=== PATIENT | male | born 1990 | race Caucasian/White ===

== ENCOUNTER 2016-11-16 10:25 | Emergency (ER) | payer OTHER ==
[~2016-11-16] VITALS: Ht 180.3 cm; Wt 55.0 kg
[~2016-11-16 10:25] MED LIST: METO10TA92 PO; ONDA4TAB8 PO; PANT40TA3 PO
[2016-11-16 10:31] VITALS: Ht 180.3 cm; Wt 55.0 kg
[2016-11-16] MEDS ORDERED: ONDANSETRON 4 MG INJ IV STA (11:24)
[2016-11-16] MEDS ORDERED: SOD CHLORIDE 0.9% 1,000 ML IV STA (11:24)
[2016-11-16] MEDS ORDERED: KETOROLAC 15 MG INJ IV STA (11:24)
[2016-11-16] MEDS ORDERED: DICYCLOMINE 20 MG INJ IM ONE (11:30)
[2016-11-16] MEDS ORDERED: LORAZEPAM 2 MG INJ IV ONE (11:30)
[2016-11-16 11:51] VITALS: BP 92/53; PULSE 57; TEMP 98
[2016-11-16 12:02] LABS: BASOPHILS % 0.7 % (0.0-2.0); CONDITION 1; EOSINOPHILS # 0.2 10^3/ul (0.0-0.5); EOSINOPHILS % 2.2 % (0.0-7.0); HEMATOCRIT 42.5 % (42.0-52.0); HEMOGLOBIN 14.8 g/dl (14.0-18.0); LYMPHOCYTES # 1.9 10^3/ul (0.8-2.9); LYMPHOCYTES % 27.5 % (15.0-51.0); MEAN CORPUSCULAR HEMOGLOBIN 32.4 pg (29.0-33.0); MEAN CORPUSCULAR HGB CONC 34.8 g/dl (32.0-37.0); MEAN CORPUSCULAR VOLUME 93.1 fl (82.0-101.0); MEAN PLATELET VOLUME 8.2 fl (7.4-10.4); MONOCYTE # 0.5 10^3/ul (0.3-0.9); MONOCYTES % 7.4 % (0.0-11.0); NEUTROPHIL # 4.3 10^3/ul (1.6-7.5); NEUTROPHILS % 62.2 % (39.0-77.0); PLATELET COUNT 253 10^3/UL (140-440); RED BLOOD COUNT 4.56 10^6/ul (4.70-6.10); RED CELL DISTRIBUTION WIDTH 12.8 % (11.5-14.5)
[2016-11-16 12:12] LABS: POTASSIUM 4.9 mmol/L (3.5-5.1)
[2016-11-16 12:14] LABS: CREATININE 0.92 mg/dl (0.61-1.24)
[2016-11-16 12:15] LABS: CALCIUM 9.9 mg/dl (8.4-10.2)
[2016-11-16] MEDS ORDERED: FAMO20TA18 PO (12:39)
--- NOTE | 2016-11-16 12:49 | ERD ---
ER Documentation Chief Complaint Date/Time DATE: 11/16/16 TIME: 12:46 Chief Complaint ap with vomiting x 5 weeks, here before c/o same HPI 26-year-old male history of cyclic vomiting syndrome secondary to chronic marijuana abuse who presents to the emergency room with nausea vomiting and abdominal pain. He describes 5 weeks of symptoms. He describes severe cramping abdominal pain with nausea and vomiting, loose stools. The patient has failed to follow-up with primary care physician and GI specialist. He states the symptoms are very similar to episodes in the past. He is asking for IV narcotic pain medication. ROS All systems reviewed and are negative except as per history of present illness. Medications Home Meds Active Scripts Metoclopramide* (Reglan*) 10 Mg Tablet, 10 MG PO Q6 Y for NAUSEA AND/OR VOMITING , #10 TAB Prov:DIONNE LAST MD 08/30/16 Ondansetron Hcl* (Zofran*) 4 Mg Tablet, 4 MG PO Q6H for NAUSEA AND/OR VOMITING, #15 TAB Prov:DIONNE LAST MD 08/30/16 Reported Medications Famotidine* (Famotidine*) 20 Mg Tablet, 20 MG PO BID, #60 TAB 11/16/16 Discontinued Scripts Pantoprazole* (Protonix*) 40 Mg Tablet.dr, 40 MG PO DAILY, #15 TAB Prov:DIONNE LAST MD 08/30/16 Allergies Allergies: Coded Allergies: No Known Drug Allergies (Verified Allergy, Unknown, 11/16/16) PMhx/Soc History of Surgery: Yes (Right hand fracture with metal implant, hernia repair as baby) Anesthesia Reaction: No Hx Neurological Disorder: No Hx Respiratory Disorders: No Hx Cardiac Disorders: No Hx Psychiatric Problems: No (Anxiety) Hx Miscellaneous Medical Probl: No Hx Alcohol Use: No Hx Substance Use: Yes (marijuana ) Hx Tobacco Use: Yes (1/2 pack.) Smoking Status: Current every day smoker FmHx Family History: No diabetes Physical Exam Vitals Vital Signs Date Time Temp Pulse Resp B/P Pulse Ox O2 Delivery O2 Flow Rate FiO2 11/16/16 11:51 98.0 57 92/53 100 Room Air 11/16/16 10:31 98.1 72 18 122/72 99 Physical Exam General: Disheveled, no significant distress Head: Normocephalic, atraumatic. Eyes: Pupils equally reactive, EOM intact ENT: Moist mucous membranes Neck: Supple, no lymphadenopathy Respiratory: Lungs clear bilaterally, no distress Cardiovascular: RRR, no murmurs, rubs, or gallops Abdominal: Soft, non-tender, non-distended, no peritoneal signs : Deferred MSK: No edema, no unilateral swelling, 5/5 strength Neurologic: Alert and oriented, moving all extremities, normal speech, no focal weakness, no cerebellar signs Skin: No rash Psych: Normal mood Result Diagram: 11/16/16 1145 11/16/16 1145 Results 24 hrs Laboratory Tests Test 11/16/16 11:45 Anion Gap 24 Basophils # 0.010^3/ul Basophils % 0.7% Blood Urea Nitrogen 37mg/dl Calcium Level 9.9mg/dl Carbon Dioxide Level 28mmol/L Chloride Level 97mmol/L Creatinine 0.92mg/dl Eosinophils # 0.210^3/ul Eosinophils % 2.2% Glucose Level 75mg/dl Hematocrit 42.5% Hemoglobin 14.8g/dl Lymphocytes # 1.910^3/ul Lymphocytes % 27.5% Mean Corpuscular Hemoglobin 32.4pg Mean Corpuscular Hemoglobin Concent 34.8g/dl Mean Corpuscular Volume 93.1fl Mean Platelet Volume 8.2fl Monocytes # 0.510^3/ul Monocytes % 7.4% Neutrophils # 4.310^3/ul Neutrophils % 62.2% Nucleated Red Blood Cells # 0.010^3/ul Nucleated Red Blood Cells % 0.0/100WBC Platelet Count 26191^3/UL Potassium Level 4.9mmol/L Red Blood Count 4.5610^6/ul Red Cell Distribution Width 12.8% Sodium Level 144mmol/L White Blood Count 7.010^3/ul Current Medications Medications (Trade) Dose Ordered Sig/Yue Route PRN Reason Start Time Stop Time Status Last Admin Dose Admin Sodium Chloride (NS) 1,000 ml @ 1,000 mls/hr Q1H STAT IV 11/16/16 11:24 11/16/16 12:23 DC 11/16/16 11:51 Ondansetron HCl (Zofran Inj) 4 mg ONCE STAT IV 11/16/16 11:24 11/16/16 11:26 DC 11/16/16 11:51 Ketorolac Tromethamine (Toradol) 15 mg ONCE STAT IV 11/16/16 11:24 11/16/16 11:26 DC 11/16/16 11:51 Lorazepam (Ativan) 1 mg ONCE ONCE IV 11/16/16 11:30 11/16/16 11:31 DC 11/16/16 11:51 Dicyclomine HCl (Bentyl) 10 mg ONCE ONCE IM 11/16/16 11:30 11/16/16 11:31 DC Procedures/MDM LAB INTERPRETATION: No leukocytosis, no significant dehydration MEDICAL DECISION MAKING: A combination of electronic medical record review, [facility] database review and patient behavior in the emergency room are concerning for drug-seeking and/or narcotic dependence behavior. In my opinion further use of IV or IM narcotics in this patient is not warranted unless clinical scenario changes. In addition , we should use caution prescribing chronic narcotic and/or benzodiazepine medications from the emergency room. A single provider should be dispensing this type of medication. The patient was informed. I personally saw the patient several days ago at [facility]. In fact the patient was at [facility] earlier today, the provider there states that he walked out when he was told that he would not receive narcotic medications. I believe his presentation today is very consistent with cyclic vomiting syndrome. I offered laboratory testing, nonnarcotic pain medication and IV fluids. The patient refused the Bentyl. I do not believe the patient has an acute intra-abdominal process, his presentation is very similar to presentations in the past. ER COURSE: The patient has greater than 7 visits to emergency department since the middle of October for similar symptoms. He had negative CT imaging earlier this month. The patient now wishes to leave AGAINST MEDICAL ADVICE because he is not receiving narcotic pain medication. We discussed the risk benefits and alternatives. A document was signed and the patient will leave AGAINST MEDICAL ADVICE. The patient has had a repeat recommendations that he needs to follow-up with a GI specialist, pain specialist management and these referrals have been provided to him in the past. He has exhibited behavior of poor follow-up, malingering, drug-seeking behavior and super utilization of the emergency department. I kept the patient and/or family informed of laboratory and diagnostic imaging results throughout the emergency room course. DISPOSITION PLAN: Patient left AMA Departure Diagnosis: Primary Impression: Abdominal pain Abdominal location: generalized Qualified Code: R10.84 - Generalized abdominal pain Additional Impressions: Cyclic vomiting syndrome Vomiting Intractability: unspecified Nausea presence: unspecified Qualified Code: G43.A0 - Cyclic vomiting syndrome, intractability of vomiting not specified, presence of nausea not specified Drug-seeking behavior Condition: JITENDRA Adames MD Nov 16, 2016 12:49
== END 2016-11-16 12:56 | disposition left against medical advice (07) ==
LOC: E/R 10:25
DX: R10.84 Generalized abdominal pain (principal); G43.A0 Cyclical vomiting, in migraine, not intractable; F17.210 Nicotine dependence, cigarettes, uncomplicated; Z72.89 Other problems related to lifestyle
CPT/HCPCS: 36415; 80048; 85025; 96374; 96375; J0500; J1885; J2060; J2405; J7030; Z7502

== ENCOUNTER 2017-10-04 20:22 | Emergency (ER) | END 2017-10-05 00:31 | disposition left against medical advice (07) ==

== ENCOUNTER 2018-07-10 11:52 | Emergency (ER) | END 2018-07-10 12:10 | disposition home or self-care (01) ==

== ENCOUNTER 2018-11-26 17:30 | Inpatient (IN) | payer OTHER ==
[~2018-11-26] VITALS: Ht 182.9 cm; Wt 51.0 kg
[~2018-11-26 17:30] MED LIST changes: +FAMO20TA18 PO; -PANT40TA3 PO
[2018-11-26 17:52] VITALS: PULSE 79
[2018-11-26 17:55] VITALS: BP 111/68; PULSE 73
[2018-11-26 17:58] VITALS: Ht 182.9 cm; Wt 51.0 kg
[2018-11-26] MEDS ORDERED: NACL 0.9% 3 ML SYG IV SCH (18:30)
[2018-11-26] MEDS ORDERED: ZOLPIDEM 5 MG TAB PO PRN (18:30)
[2018-11-26] MEDS ORDERED: ACETAMINOPHEN 325 MG TAB PO PRN (18:30)
[2018-11-26] MEDS: morphine 2 MG INJ IV PRN ×2 (18:50→23:21)
--- NOTE | 2018-11-26 19:05 | HP ---
Date/Time of Note Date/Time of Note DATE: 11/26/18 TIME: 19:02 Assessment/Plan VTE Prophylaxis SCD applied (from Ns): Yes Pharmacological prophylaxis: NA/contraindicated Pharm contraindication: low risk/ambulating Assessment/Plan Hospital Course 1. 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 Hypokalemia secondary to above Replete 3. Bipolar disorder with anxiety Continue home Klonopin Prophylaxis: SCDs HPI/ROS Admit Date/Time Admit Date/Time Nov 26, 2018 at 17:30 Hx of Present Illness Patient is a 28-year-old male with a history of intractable nausea and vomiting, bipolar disorder, anxiety. Patient presented to an outside hospital with persistent and intractable nausea and vomiting, patient was found to be hypokalemic and was transferred to [facility] due to capitation. P juvencio continues to report mild nausea but has no other acute complaints this time. ROS Constitutional: no complaints, improved Eyes: no complaints ENT: no complaints Respiratory: no complaints Cardiovascular: no complaints Gastrointestinal: nausea, vomiting Genitourinary: no complaints Musculoskeletal: no complaints Skin: no complaints Neurologic: no complaints Endocrine: no complaints Lymphatic: no complaints Psychological: no complaints, nl mood/affect Immunologic: no complaints PMH/Family/Social Past Medical History Bipolar disorder, anxiety, intractable nausea and vomitting Medications Current Medications IV Flush (NS 3 ml) 3 ml PER PROTOCOL IV ; Start 11/26/18 at 18:30 Ondansetron HCl (Zofran Inj) 4 mg Q6H PRN IV NAUSEA/VOMITING; Start 11/26/18 at 18:30 Acetaminophen (Tylenol Tab) 650 mg Q6H PRN PO .PAIN 1-3 OR TEMP; Start 11/26/18 at 18:30 Acetaminophen/ Hydrocodone Bitart ([place] (5/325)) 1 tab Q6H PRN PO .MOD PAIN 4- 6; Start 11/26/18 at 18:30 Morphine Sulfate (morphine) 2 mg Q4H PRN IV .SEVERE PAIN 7-10 Last administered on 11/26/18at 18:50; Admin Dose 2 MG; Start 11/26/18 at 18:30 Zolpidem Tartrate (Ambien) 5 mg QHS PRN PO .INSOMNIA; Start 11/26/18 at 18:30 Potassium Chloride 40 meq/ Sodium Chloride 1,000 ml @ 100 mls/hr Q10H IV ; S tart 11/26/18 at 18:30 Influenza Virus Vaccine Quadrival (Fluzone) 0.5 ml ONCE ONCE IM* ; Start 11/27/18 at 09:00; Stop 11/27/18 at 09:01 Coded Allergies: No Known Drug Allergies (Verified Allergy, Unknown, 11/16/16) Past Surgical History Past Surgical Hx: no surgical history Family History Significant Family History: no pertinent family hx Social History Alcohol Use: rarely Smoking Status: Current every day smoker Drug Use: none Exam/Review of Systems Vital Signs Vitals Vital Signs Date Temp Pulse Resp B/P (MAP) Pulse Ox O2 O2 Flow FiO2 Time Delivery Rate 11/26/18 99.3 73 111/68 97 Room Air 17:55 (82) Exam Constitutional: alert, oriented Respiratory: clear to auscultation Cardiovascular: regular rate and rhythm Gastrointestinal: soft; No distended Musculoskeletal: nl extremities to inspection GABRIELLE ROMO Nov 26, 2018 19:05
[2018-11-26 20:00] VITALS: PULSE 74
[2018-11-26 20:13] VITALS: BP 120/82; PULSE 77; RESP 20
[2018-11-26] MEDS: POTASSIUM CHLORIDE 40 MEQ in SOD CHLORIDE 0.9% 1,000 ML IV SCH (20:17)
[2018-11-26] MEDS: clonAZEPAM 0.5 MG TAB PO SCH (20:18)
[2018-11-26] MEDS: NICOTINE (21 MG/24 HR) PATCH TRANSDERM SCH (23:16)
[2018-11-27] VITALS (13 sets, daily range): BP systolic 108–128; BP diastolic 66–85; PULSE 52–78; RESP 18–20
[2018-11-27] MEDS: ONDANSETRON 4 MG INJ IV PRN ×2 (02:08→08:12)
[2018-11-27] MEDS: morphine 2 MG INJ IV PRN ×6 (03:10→23:40)
[2018-11-27] MEDS: POTASSIUM CHLORIDE 40 MEQ in SOD CHLORIDE 0.9% 1,000 ML IV SCH ×2 (06:13→14:30)
[2018-11-27] MEDS: clonAZEPAM 0.5 MG TAB PO SCH ×2 (08:12→21:19)
[2018-11-27] MEDS: NICOTINE (21 MG/24 HR) PATCH TRANSDERM SCH (08:13)
[2018-11-27] MEDS: POTASSIUM CHLORIDE 100 ML IVPB SCH ×3 (08:23→15:03)
[2018-11-27] MEDS ORDERED: INFLUENZA VIRUS VACCINE 0.5 ML (DISPENSING) IM* ONE (09:00)
[2018-11-27] MEDS ORDERED: NICOTINE (21 MG/24 HR) PATCH TRANSDERM SCH (09:00)
[2018-11-27] MEDS: HYDROCODONE/APAP (5/325) TAB PO PRN ×3 (09:52→23:04)
--- NOTE | 2018-11-27 15:59 | PN ---
Date/Time of Note Date/Time of Note DATE: 11/27/18 TIME: 15:55 Assessment/Plan VTE Prophylaxis Risk score (from Ns)>0 risk: 1 SCD applied (from Ns): Yes Pharmacological prophylaxis: NA/contraindicated Pharm contraindication: low risk/ambulating Lines/Catheters IV [facility]from [facility] Peripheral IV Assessment/Plan Hospital Course 1. 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 Hypokalemia secondary to above Replete 3. Bipolar disorder with anxiety Continue home [facility] Inpatient psychiatric consultation obtained Prophylaxis: SCDs Result Diagram: 11/27/18 0512 11/27/18 0512 Results 24hrs Laboratory Tests Test 11/27/18 05:12 White Blood Count 10.2 # Red Blood Count 4.74 Hemoglobin 14.8 Hematocrit 41.4 L Mean Corpuscular Volume 87.3 Mean Corpuscular Hemoglobin 31.2 Mean Corpuscular Hemoglobin Concent 35.7 Red Cell Distribution Width 11.8 Platelet Count 411 Mean Platelet Volume 9.8 Immature Granulocytes % 0.200 Neutrophils % 65.8 Lymphocytes % 20.7 Monocytes % 12.3 H Eosinophils % 0.4 Basophils % 0.6 Nucleated Red Blood Cells % 0.0 Immature Granulocytes # 0.020 Neutrophils # 6.7 Lymphocytes # 2.1 Monocytes # 1.3 H Eosinophils # 0.0 Basophils # 0.1 Nucleated Red Blood Cells # 0.0 Sodium Level 134 L Potassium Level 2.5 *L Chloride Level 76 L Carbon Dioxide Level 43 *H Anion Gap 15 H Blood Urea Nitrogen 44 H Creatinine 1.34 H Est Glomerular Filtrat Rate mL/min > 60 Glucose Level 114 Hemoglobin A1c 5.1 Calcium Level 9.5 Phosphorus Level 2.7 Magnesium Level 2.1 Total Bilirubin 0.9 Direct Bilirubin 0.00 Indirect Bilirubin 0.9 Aspartate Amino Transf (AST/SGOT) 31 Alanine Aminotransferase (ALT/SGPT) 26 Alkaline Phosphatase 69 Total Protein 8.3 H Albumin 4.4 Globulin 3.90 H Albumin/Globulin Ratio 1.12 Subjective 24 Hr Interval Summary Gastrointestinal: pain, nausea Exam/Review of Systems Exam Vitals Vital Signs Date Temp Pulse Resp B/P (MAP) Pulse Ox O2 O2 Flow FiO2 Time Delivery Rate 11/27/18 59 12:44 11/27/18 97.6 18 120/84 100 11:56 (96) 11/26/18 Room Air 17:55 Intake and Output 11/26/18 11/26/18 11/27/18 1515:00 23:00 07:00 IntakeIntake Total 1350 ml OutputOutput Total 600 ml BalanceBalance 750 ml Constitutional: alert, oriented Respiratory: clear to auscultation Cardiovascular: regular rate and rhythm Gastrointestinal: soft; No distended Musculoskeletal: nl extremities to inspection Results Results 24hrs Laboratory Tests Test 11/27/18 05:12 White Blood Count 10.2 # Red Blood Count 4.74 Hemoglobin 14.8 Hematocrit 41.4 L Mean Corpuscular Volume 87.3 Mean Corpuscular Hemoglobin 31.2 Mean Corpuscular Hemoglobin Concent 35.7 Red Cell Distribution Width 11.8 Platelet Count 411 Mean Platelet Volume 9.8 Immature Granulocytes % 0.200 Neutrophils % 65.8 Lymphocytes % 20.7 Monocytes % 12.3 H Eosinophils % 0.4 Basophils % 0.6 Nucleated Red Blood Cells % 0.0 Immature Granulocytes # 0.020 Neutrophils # 6.7 Lymphocytes # 2.1 Monocytes # 1.3 H Eosinophils # 0.0 Basophils # 0.1 Nucleated Red Blood Cells # 0.0 Sodium Level 134 L Potassium Level 2.5 *L Chloride Level 76 L Carbon Dioxide Level 43 *H Anion Gap 15 H Blood Urea Nitrogen 44 H Creatinine 1.34 H Est Glomerular Filtrat Rate mL/min > 60 Glucose Level 114 Hemoglobin A1c 5.1 Calcium Level 9.5 Phosphorus Level 2.7 Magnesium Level 2.1 Total Bilirubin 0.9 Direct Bilirubin 0.00 Indirect Bilirubin 0.9 Aspartate Amino Transf (AST/SGOT) 31 Alanine Aminotransferase (ALT/SGPT) 26 Alkaline Phosphatase 69 Total Protein 8.3 H Albumin 4.4 Globulin 3.90 H Albumin/Globulin Ratio 1.12 Medications Medication Current Medications IV Flush (NS 3 ml) 3 ml PER PROTOCOL IV ; Start 11/26/18 at 18:30 Ondansetron HCl (Zofran Inj) 4 mg Q6H PRN IV NAUSEA/VOMITING Last administered on 11/27/18 08:12; Admin Dose 4 MG; Start 11/26/18 at 18:30 Acetaminophen (Tylenol Tab) 650 mg Q6H PRN PO .PAIN 1-3 OR TEMP; Start 11/26/18 at 18:30 Acetaminophen/ Hydrocodone Bitart ([place] (5/325)) 1 tab Q6H PRN PO .MOD PAIN 4- 6 Last administered on 11/27/18 09:52; Admin Dose 1 TAB; Start 11/26/18 at 18:30 Morphine Sulfate (morphine) 2 mg Q4H PRN IV .SEVERE PAIN 7-10 Last administered on 11/27/18 15:23; Admin Dose 2 MG; Start 11/26/18 at 18:30 Zolpidem Tartrate (Ambien) 5 mg QHS PRN PO .INSOMNIA; Start 11/26/18 at 18:30 Potassium Chloride 40 meq/ Sodium Chloride 1,000 ml @ 100 mls/hr Q10H IV Last administered on 11/27/18 06:13; Admin Dose 100 MLS/HR; Start 11/26/18 at 18:30 Clonazepam (Klonopin) 1 mg BID PO Last administered on 11/27/18 08:12; Admin Dose 1 MG; Start 11/26/18 at 21:00 Nicotine (Nicoderm 21 Mg/ 24hr) 1 patch DAILY TRANSDERM Last administered on 11/27/18 08:13; Admin Dose 1 PATCH; Start 11/26/18 at 23:00 GABRIELLE ROMO Nov 27, 2018 15:59
[2018-11-28] VITALS (10 sets, daily range): BP systolic 100–115; BP diastolic 65–75; PULSE 56–91; RESP 18–20
[2018-11-28] MEDS: POTASSIUM CHLORIDE 40 MEQ in SOD CHLORIDE 0.9% 1,000 ML IV SCH ×5 (00:29→22:51)
[2018-11-28] MEDS: morphine 2 MG INJ IV PRN ×5 (03:42→20:32)
[2018-11-28] MEDS: ONDANSETRON 4 MG INJ IV PRN (04:26)
[2018-11-28] MEDS: HYDROCODONE/APAP (5/325) TAB PO PRN ×3 (05:15→22:51)
[2018-11-28] MEDS: NICOTINE (21 MG/24 HR) PATCH TRANSDERM SCH (07:49)
[2018-11-28] MEDS: clonAZEPAM 0.5 MG TAB PO SCH ×2 (07:49→20:32)
[2018-11-28] MEDS: LORAZEPAM 1 MG TAB PO PRN ×2 (10:02→18:20)
[2018-11-28] MEDS ORDERED: clonAZEPAM 0.5 MG TAB PO ONE (13:00)
--- NOTE | 2018-11-28 14:40 | PN ---
Date/Time of Note Date/Time of Note DATE: 11/28/18 TIME: 14:38 Assessment/Plan VTE Prophylaxis Risk score (from Nsg)>0 risk: 0 SCD applied (from Ns): Yes Pharmacological prophylaxis: NA/contraindicated Pharm contraindication: low risk/ambulating Lines/Catheters IV Catheter Type (from Nrsg): Peripheral IV Assessment/Plan Hospital Course 1. Intractable nausea and vomiting likely secondary to underlying psychiatric condition Patient was recently diagnosed with bipolar disorder and anxiety and has been started on medications by his psychiatrist Patient has had multiple endoscopies as well as food journal with no clear objective etiology for his symptoms Patient does have a history of marijuana use but uses only minimally at this time Zofran IV Continue psychiatric medications-Klonopin Patient will need to continue follow-up with his psychiatrist and manager line as an outpatient upon DC 2. Hypokalemia secondary to above Replete 3. Bipolar disorder with anxiety Continue home Klonopin and have added Ativan due to severe anxiety Inpatient psychiatric consultation obtained Prophylaxis: SCDs Result Diagram: 11/27/1851111/28/1812 Results 24hrs Laboratory Tests Test 11/28/18 05:12 Sodium Level 136 Potassium Level 3.3 L Chloride Level 91 #L Carbon Dioxide Level 39 H Anion Gap 6 # Blood Urea Nitrogen 28 #H Creatinine 1.04 Est Glomerular Filtrat Rate mL/min > 60 Glucose Level 94 Calcium Level 9.2 Subjective 24 Hr Interval Summary Gastrointestinal: nausea Psychological: anxiety Exam/Review of Systems Exam Vitals Vital Signs Date Temp Pulse Resp B/P (MAP) Pulse Ox O2 O2 Flow FiO2 Time Delivery Rate 11/28/18 76 12:20 11/28/18 97.8 20 104/68 100 Room Air 07:35 (80) Intake and Output 11/27/18 11/27/18 11/28/18 1515:00 23:00 07:00 IntakeIntake Total 720 ml 1800 ml OutputOutput Total 1050 ml BalanceBalance 720 ml 750 ml Constitutional: alert Respiratory: clear to auscultation Cardiovascular: regular rate and rhythm Gastrointestinal: soft; No distended Musculoskeletal: nl extremities to inspection Results Results 24hrs Laboratory Tests Test 11/28/18 05:12 Sodium Level 136 Potassium Level 3.3 L Chloride Level 91 #L Carbon Dioxide Level 39 H Anion Gap 6 # Blood Urea Nitrogen 28 #H Creatinine 1.04 Est Glomerular Filtrat Rate mL/min > 60 Glucose Level 94 Calcium Level 9.2 Medications Medication Current Medications IV Flush (NS 3 ml) 3 ml PER PROTOCOL IV ; Start 11/26/18 at 18:30 Ondansetron HCl (Zofran Inj) 4 mg Q6H PRN IV NAUSEA/VOMITING Last administered on 11/28/18 04:26; Admin Dose 4 MG; Start 11/26/18 at 18:30 Acetaminophen (Tylenol Tab) 650 mg Q6H PRN PO .PAIN 1-3 OR TEMP; Start 11/26/18 at 18:30 Acetaminophen/ Hydrocodone Bitart ([place] (5/325)) 1 tab Q6H PRN PO .MOD PAIN 4- 6 Last administered on 11/28/18 13:38; Admin Dose 1 TAB; Start 11/26/18 at 18:30 Morphine Sulfate (morphine) 2 mg Q4H PRN IV .SEVERE PAIN 7-10 Last administered on 11/28/18 11:55; Admin Dose 2 MG; Start 11/26/18 at 18:30 Zolpidem Tartrate (Ambien) 5 mg QHS PRN PO .INSOMNIA; Start 11/26/18 at 18:30 Potassium Chloride 40 meq/ Sodium Chloride 1,000 ml @ 100 mls/hr Q10H IV Last administered on 11/28/18 12:58; Admin Dose 100 MLS/HR; Start 11/26/18 at 18:30 Clonazepam (Klonopin) 1 mg BID PO Last administered on 11/28/18 07:49; Admin Dose 1 MG; Start 11/26/18 at 21:00 Nicotine (Nicoderm 21 Mg/ 24hr) 1 patch DAILY TRANSDERM Last administered on 11/28/18 07:49; Admin Dose 1 PATCH; Start 11/26/18 at 23:00 Lorazepam (Ativan) 1 mg Q8H PRN PO ANXIETY Last administered on 11/28/18 10:02; Admin Dose 1 MG; Start 11/28/18 at 10:00 GABRIELLE ROMO Nov 28, 2018 14:39
--- NOTE | 2018-11-28 16:14 | PSY ---
Date/Time of Note Date/Time of Note DATE: 11/28/18 TIME: 16:12 Psychiatric Subjective Eval Consent Pt consented to telemedicine: No Subjective Evaluation Patient location: inpatient History of present illness Patient is a 28-year-old male with a history of intractable nausea and vomiting. On a [id number] evaluation, patient is increasingly anxious, reports feeling depressed and hopeless patient however denies suicidal ideation and contracted for safety. Explained risk and benefits of antidepressant and antianxiety and he verbalized understanding Hospitalization: other Medical history Problems Medical Problems: (1) Abdominal pain Status: Acute (2) Abdominal pain Status: Acute (3) Abdominal pain Status: Acute (4) Abdominal pain of unknown etiology Status: Acute (5) Acute hypokalemia Status: Acute (6) Acute kidney injury Status: Acute (7) ARF (acute renal failure) Status: Acute (8) Chronic renal disease Status: Acute (9) Cyclic vomiting syndrome Status: Acute (10) Cyclical vomiting syndrome Status: Acute (11) Cyclical vomiting syndrome Status: Acute (12) Drug-seeking behavior Status: Acute (13) Gastritis Status: Acute (14) Hyperemesis Status: Acute (15) Intractable vomiting with nausea Status: Acute (16) Leukocytosis Status: Acute (17) Marijuana abuse Status: Acute (18) Nausea and vomiting Status: Acute (19) Patient left after triage Status: Acute (20) Patient left before evaluation by physician Status: Acute (21) Patient left before triage assessment Status: Acute (22) Polysubstance abuse Status: Acute (23) Symptoms of dehydration Status: Acute (24) Upper gastrointestinal bleed Status: Acute (25) Vomiting Status: Acute Allergies: Coded Allergies: No Known Drug Allergies (Verified Allergy, Unknown, 11/16/16) Substance Abuse Substance abuse history: No Prior substance abuse treatmen: No Social History Marital status: DPA/Conservatorship: No Psychiatric Objective Eval Review of Systems: Review of Systems: Not Applicable Physical Examination: Physical Examination: Not Applicable Mental Status Examination: Appearance: Disheveled Psychomotor Activity: Slow Behavior: Cooperative Speech: Clear AFFECT: Anxious Mood: Irritable Orientation: x4 Judgement: Moderate Attention Span: Distractible Laboratory Results Laboratory Tests Test 11/27/18 05:12 11/28/18 05:12 White Blood Count 10.2 10^3/ul Red Blood Count 4.74 10^6/ul Hemoglobin 14.8 g/dl Hematocrit 41.4 % Mean Corpuscular Volume 87.3 fl Mean Corpuscular Hemoglobin 31.2 pg Mean Corpuscular Hemoglobin Concent 35.7 g/dl Red Cell Distribution Width 11.8 % Platelet Count 411 10^3/UL Mean Platelet Volume 9.8 fl Immature Granulocytes % 0.200 % Neutrophils % 65.8 % Lymphocytes % 20.7 % Monocytes % 12.3 % Eosinophils % 0.4 % Basophils % 0.6 % Nucleated Red Blood Cells % 0.0 /100WBC Immature Granulocytes # 0.020 10^3/ul Neutrophils # 6.7 10^3/ul Lymphocytes # 2.1 10^3/ul Monocytes # 1.3 10^3/ul Eosinophils # 0.0 10^3/ul Basophils # 0.1 10^3/ul Nucleated Red Blood Cells # 0.0 10^3/ul Sodium Level 134 mmol/L 136 mmol/L Potassium Level 2.5 mmol/L 3.3 mmol/L Chloride Level 76 mmol/L 91 mmol/L Carbon Dioxide Level 43 mmol/L 39 mmol/L Anion Gap 15 6 Blood Urea Nitrogen 44 mg/dl 28 mg/dl Creatinine 1.34 mg/dl 1.04 mg/dl Est Glomerular Filtrat Rate mL/min > 60 mL/min > 60 mL/min Glucose Level 114 mg/dl 94 mg/dl Hemoglobin A1c 5.1 % Calcium Level 9.5 mg/dl 9.2 mg/dl Phosphorus Level 2.7 mg/dl Magnesium Level 2.1 mg/dl Total Bilirubin 0.9 mg/dl Direct Bilirubin 0.00 mg/dl Indirect Bilirubin 0.9 mg/dl Aspartate Amino Transf (AST/SGOT) 31 IU/L Alanine Aminotransferase (ALT/SGPT) 26 IU/L Alkaline Phosphatase 69 IU/L Total Protein 8.3 g/dl Albumin 4.4 g/dl Globulin 3.90 g/dl Albumin/Globulin Ratio 1.12 Assessment and Plan Assessment/Diagnosis Diagnosis Major depressive disorder severe recurrent without psychosis Recommendation/Plan Medication Management Lexapro 5 mg daily, continue with Klonopin 1 mg 3 times daily, BuSpar 5 mg 3 times daily, Ambien 5 mg at bedtime as needed for sleep Multiple antipsychotics: No Psychotherapy Provide supportive therapy Discharge Disposition: Other Legal Status: Voluntary TRACY CONRAD NP Nov 28, 2018 16:14
[2018-11-28] MEDS: ESCITALOPRAM 10 MG TAB PO SCH (17:06)
[2018-11-28] MEDS: BUSPIRONE 5 MG TAB PO SCH (20:31)
[2018-11-28] MEDS ORDERED: LORAZEPAM 2 MG INJ IV ONE (22:00)
[2018-11-29] MEDS: morphine 2 MG INJ IV PRN ×3 (00:04→08:15)
[2018-11-29 00:09] VITALS: BP 121/67; PULSE 77; RESP 18
[2018-11-29 00:17] VITALS: PULSE 73
[2018-11-29] MEDS: LORAZEPAM 1 MG TAB PO PRN ×2 (02:35→09:25)
[2018-11-29] MEDS ORDERED: HYDROCODONE/APAP (5/325) TAB PO PRN (02:40)
[2018-11-29 04:17] VITALS: BP 103/70; PULSE 70; RESP 18
[2018-11-29 04:27] VITALS: PULSE 77
[2018-11-29 07:32] VITALS: BP 98/57; PULSE 76; RESP 20
[2018-11-29] MEDS: clonAZEPAM 0.5 MG TAB PO SCH (08:12)
[2018-11-29] MEDS: ESCITALOPRAM 10 MG TAB PO SCH (08:12)
[2018-11-29] MEDS: BUSPIRONE 5 MG TAB PO SCH (08:12)
[2018-11-29] MEDS: NICOTINE (21 MG/24 HR) PATCH TRANSDERM SCH (08:13)
[2018-11-29 08:20] VITALS: PULSE 90
[2018-11-29] MEDS ORDERED: ESCI10TA48 PO (10:11)
[2018-11-29] MEDS ORDERED: BUSP5TAB2 PO (10:11)
[2018-11-29] MEDS ORDERED: ONDA4TAB8 PO (10:11)
[2018-11-29] MEDS ORDERED: METO10TA92 PO (10:11)
[2018-11-29] MEDS ORDERED: CLON0.5T14 PO (10:11)
--- NOTE | 2018-11-29 10:12 | PDOCDIS ---
Discharge Instructions CONDITION [id number] Patient Condition: [id number] Good HOME CARE INSTRUCTIONS: [id number] Diet Instructions: [id number] Regular ACTIVITY: [id number] Activity Restrictions: [id number] No Restrictions FOLLOW UP/APPOINTMENTS Follow-up Plan FOLLOW UP WITH YOUR PCP IN 1-2 WEEKS GABRIELLE ROMO Nov 29, 2018 10:12
--- NOTE | 2018-11-29 13:43 | DS ---
Date/Time of Note Date/Time of Note DATE: 11/29/18 TIME: 13:38 Discharge Summary Admission/Discharge Info Admit Date/Time Nov 26, 2018 at 17:30 Discharge Date/Time Nov 29, 2018 at 11:00 Discharge Diagnosis 1. 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 Hypokalemia secondary to above-resolved 3. Bipolar disorder with anxiety Inpatient psychiatric consultation appreciated DC with Lexapro, Klonopin and BuSpar Follow-up with outpatient psychiatrist Patient Condition: Good Hospital Course Patient is a 28-year-old male with a history of intractable nausea and vomiting, bipolar disorder, anxiety. Patient presented to an outside hospital with persistent and intractable nausea and vomiting, patient was found to be hypokalemic and was transferred to [facility] due to capitation. Patient continues to report mild nausea but has no other acute complaints this time. Patient has been dealing with these episodes of nausea vomiting for many years now and is likely psychosomatic. Patient has had endoscopies with no clear etiology and has kept a food journal with no obvious food allergies. Patient does have severe anxiety and was recently bipolar disorder by an outpatient psychiatrist. Patient did have significant anxiety during his hospitalization and was seen by psychiatry and was started on BuSpar, Lexapro and Klonopin frequency was increased. Patient did ultimately tolerate a p.o. diet and was stable for DC, potassium was repleted. On the day of discharge patient's vitals, labs and physical exam are stable. Home Meds Active Scripts Escitalopram Oxalate* (Escitalopram Oxalate*) 10 Mg Tablet, 5 MG PO DAILY, #60 TAB Prov:GABRIELLE ROMO 11/29/18 Clonazepam* (Clonazepam*) 0.5 Mg Tablet, 1 MG PO TID, #90 TAB 1 Refill Prov:GABRIELLE ROMO 11/29/18 Buspirone Hcl* (Buspirone Hcl*) 5 Mg Tab, 5 MG PO TID, #60 TAB 2 Refills Prov:GABRIELLE ROMO 11/29/18 Metoclopramide* (Reglan*) 10 Mg Tablet, 10 MG PO Q6 PRN for NAUSEA AND/OR VOMITING, #30 TAB Prov:GABRIELLE ROMO 11/29/18 Ondansetron Hcl* (Zofran*) 4 Mg Tablet, 4 MG PO Q6H PRN for NAUSEA AND/OR VOMITING, #40 TAB Prov:GABRIELLE ROMO 11/29/18 Reported Medications Famotidine* (Famotidine*) 20 Mg Tablet, 20 MG PO BID, #60 TAB 11/16/16 Follow-up Plan FOLLOW UP WITH YOUR PCP IN 1-2 WEEKS Primary Care Provider Care Physician No Primary Time spent on discharge: > 30 minutes GABRIELLE ROMO Nov 29, 2018 13:43
== END 2018-11-29 11:00 | disposition home or self-care (01) | DRG 392 ==
LOC: 6WM 17:30
PROVIDERS: ADMIT Internal Medicine; ATTEND Internal Medicine
DX: R11.2 Nausea with vomiting, unspecified (principal); Z68.1 Body mass index [BMI] 19.9 or less, adult; E44.0 Moderate protein-calorie malnutrition; E87.6 Hypokalemia; F31.9 Bipolar disorder, unspecified; F41.9 Anxiety disorder, unspecified; F17.210 Nicotine dependence, cigarettes, uncomplicated
CPT/HCPCS: 80048; 80053; 83036; 83735; 84100; 85025; 90686; J2060; J2270; J2405; J3480; J7030

== ENCOUNTER 2018-12-01 18:24 | Emergency (ER) | payer SELFPAY ==
[~2018-12-01] VITALS: Ht 182.9 cm; Wt 55.0 kg
[~2018-12-01 18:24] MED LIST changes: +BUSP5TAB2 PO; +CLON0.5T14 PO; +ESCI10TA48 PO
[2018-12-01 18:40] VITALS: Ht 182.9 cm; Wt 55.0 kg
== END 2018-12-01 21:08 | disposition left against medical advice (07) ==
LOC: E/R 18:24
DX: Z53.21 Procedure and treatment not carried out due to patient leaving prior to being seen by health care provider (principal)

== ENCOUNTER 2018-12-02 10:55 | Emergency (ER) | payer OTHER ==
[~2018-12-02] VITALS: Ht 182.9 cm; Wt 54.5 kg
[2018-12-02 11:03] VITALS: Ht 182.9 cm; Wt 54.5 kg
[2018-12-02] MEDS ORDERED: KETOROLAC 30 MG INJ IV STA (11:44)
[2018-12-02] MEDS ORDERED: SOD CHLORIDE 0.9% 1,000 ML IV STA (11:44)
[2018-12-02 11:53] VITALS: BP 129/88; PULSE 65; RESP 20
[2018-12-02] MEDS ORDERED: LORAZEPAM 2 MG INJ IV ONE ×2 (12:00→13:30)
[2018-12-02] MEDS ORDERED: KETAMINE (50 MG/ML) 10 ML VIAL IV ONE (13:00)
[2018-12-02] MEDS ORDERED: HYDROCODONE/APAP (10/325) TAB PO ONE (13:30)
--- NOTE | 2018-12-02 13:50 | ERD ---
ER Documentation Chief Complaint Chief Complaint black out this am in bathroom, just d/c 3 days ago, body pain, ap HPI This is a 28-year-old gentleman with a history of cyclic vomiting syndrome, chronic pain who presents to the emergency room stating that he had an episode of syncope versus near syncope. He states that he was just discharged from the hospital approximately 3 days ago. The patient describes persistent nonbloody nonbilious emesis. He states that he feels dehydrated and he may have fell to the ground and hit his head. He denies or is unsure of loss of consciousness. He is describing right-sided headache and right-sided shoulder pain. The patient is asking for narcotic medications by name. He reports his pain to be 10 out of 10. ROS All systems reviewed and are negative except as per history of present illness. Medications Home Meds Active Scripts Escitalopram Oxalate* (Escitalopram Oxalate*) 10 Mg Tablet, 5 MG PO DAILY, #60 TAB Prov:GABRIELLE CEBALLOS 11/29/18 Clonazepam* (Clonazepam*) 0.5 Mg Tablet, 1 MG PO TID, #90 TAB 1 Refill Prov:GABRIELLE CEBALLOS 11/29/18 Buspirone Hcl* (Buspirone Hcl*) 5 Mg Tab, 5 MG PO TID, #60 TAB 2 Refills Prov:GABRIELLE CEBALLOS 11/29/18 Metoclopramide* (Reglan*) 10 Mg Tablet, 10 MG PO Q6 PRN for NAUSEA AND/OR VOMITING, #30 TAB Prov:GABRIELLE CEBALLOS 11/29/18 Ondansetron Hcl* (Zofran*) 4 Mg Tablet, 4 MG PO Q6H PRN for NAUSEA AND/OR V OMITING, #40 TAB Prov:GABRIELLE CEBALLOS 11/29/18 Reported Medications Famotidine* (Famotidine*) 20 Mg Tablet, 20 MG PO BID, #60 TAB 11/16/16 Allergies Allergies: Coded Allergies: No Known Drug Allergies (Verified Allergy, Unknown, 11/16/16) PMhx/Soc History of Surgery: Yes (METAL PLATE ON RIGHT HAND) Anesthesia Reaction: No Hx Neurological Disorder: No Hx Respiratory Disorders: No Hx Cardiac Disorders: No Hx Psychiatric Problems: Yes (ANXIETY, BIPOLAR DISORDER) Hx Miscellaneous Medical Probl: Yes (cyclic vomiting) Hx Alcohol Use: No Hx Substance Use: No Hx Tobacco Use: Yes (1/2 pck daily) Smoking Status: Current every day smoker FmHx Family History: No diabetes Physical Exam Vitals Vital Signs Date Temp Pulse Resp B/P (MAP) Pulse Ox O2 O2 Flow FiO2 Time Delivery Rate 12/02/18 65 20 129/88 Room Air 11:53 (102) 12/02/18 98.2 81 18 111/59 97 11:03 (76) Physical Exam General: Somewhat disheveled, tearful, anxious Head: Normocephalic, atraumatic. Eyes: Pupils equally reactive, EOM intact ENT: Moist mucous membranes Neck: Supple, no lymphadenopathy Respiratory: Lungs clear bilaterally, no distress Cardiovascular: RRR, no murmurs, rubs, or gallops Abdominal: Soft, non-tender, non-distended, no peritoneal signs : Deferred MSK: No edema, no unilateral swelling, 5/5 strength, right shoulder without bony abnormalities, full active and passive range of motion, no bony or focal tenderness to palpation. Neurologic: Alert and oriented, moving all extremities, normal speech, no focal weakness, no cerebellar signs Skin: No rash Psych: Normal mood Result Diagram: 12/02/18 1150 12/02/18 1149 Results 24 hrs Laboratory Tests Test 12/02/18 11:49 12/02/18 11:50 Sodium Level 146 mmol/L Potassium Level 4.0 mmol/L Chloride Level 102 mmol/L Carbon Dioxide Level 32 mmol/L Anion Gap 12 Blood Urea Nitrogen 30 mg/dl Creatinine 1.21 mg/dl Est Glomerular Filtrat Rate mL/min > 60 mL/min Glucose Level 94 mg/dl Calcium Level 9.8 mg/dl White Blood Count 6.7 10^3/ul Red Blood Count 4.35 10^6/ul Hemoglobin 13.5 g/dl Hematocrit 39.8 % Mean Corpuscular Volume 91.5 fl Mean Corpuscular Hemoglobin 31.0 pg Mean Corpuscular Hemoglobin Concent 33.9 g/dl Red Cell Distribution Width 12.9 % Platelet Count 376 10^3/UL Mean Platelet Volume 9.4 fl Immature Granulocytes % 0.300 % Neutrophils % 64.1 % Lymphocytes % 25.5 % Monocytes % 8.2 % Eosinophils % 0.9 % Basophils % 1.0 % Nucleated Red Blood Cells % 0.0 /100WBC Immature Granulocytes # 0.020 10^3/ul Neutrophils # 4.3 10^3/ul Lymphocytes # 1.7 10^3/ul Monocytes # 0.6 10^3/ul Eosinophils # 0.1 10^3/ul Basophils # 0.1 10^3/ul Nucleated Red Blood Cells # 0.0 10^3/ul Current Medications Medications Dose Sig/Yue Start Time Status Last (Trade) Ordered Route PRN Stop Time Admin Dose Reason Admin Sodium 1,000 ml @ Q1H STAT 12/02/18 DC 12/02/18 Chloride 1,000 mls/hr IV 11:44 12/02/18 12:09 12:43 Ketorolac 30 mg ONCE STAT 12/02/18 DC 12/02/18 Tromethamine IV 11:44 12/02/18 12:09 (Toradol) 11:46 Lorazepam 1 mg ONCE ONCE 12/02/18 DC 12/02/18 (Ativan) IV 12:00 12/02/18 12:09 12:01 Ketamine 10 mg ONCE ONCE 12/02/18 DC 12/02/18 HCl IV 13:00 12/02/18 12:57 (Ketalar) 13:01 Lorazepam 1 mg ONCE ONCE 12/02/18 DC 12/02/18 (Ativan) IV 13:30 12/02/18 13:27 13:31 1 tab ONCE ONCE 12/02/18 DC 12/02/18 Acetaminophen PO 13:30 12/02/18 13:27 / 13:31 Hydrocodone Bitart ([place] (10/325)) Procedures/MDM EKG, MONITORS, & DIAGNOSTIC IMAGING: EKG: I reviewed and interpreted a 12-lead EKG. Rhythm: Normal sinus rhythm ST Changes: No contiguous ST segment elevations T waves: No contiguous T wave inversions Impression: [No evidence of acute cardiac ischemia] X-ray right shoulder: No acute process per radiologist read CT brain: IMPRESSION: Normal head CT. No intracranial hemorrhage or skull fracture. LAB INTERPRETATION: I reviewed the laboratory testing and it shows [no evidence of acute process] MEDICAL DECISION MAKING: Patient presents with an exacerbation of cyclic vomiting syndrome, complaining of possible syncope versus near syncope likely secondary to dehydration. The patient is additionally continuing to ask for IV narcotics. The patient does have a history of cannabis abuse, likely contributing to his cyclic vomiting syndrome. I am strongly suspicious for narcotic dependence or narcotic seeking behavior in this patient would like to avoid IV narcotics as I do not believe they are indicated at this time. Patient has a benign abdominal exam without indication for CT imaging. He did fall and states that he hit his head therefore CT imaging of the head and x-ray imaging of the shoulder would be appropriate. The patient MELL care plan does reveal approximately 26 visits in the past 12 months to local emergency departments for pain related issues including 16 visits to [place]. ER COURSE: * The patient's diagnostic imaging reveals no evidence of traumatic injury * Multiple attempts to control the patient's pain in a nonnarcotic fashion including Toradol, oral [place], ketamine were performed. Immediately after dosing the patient asks for narcotic pain medication. Patient was advised of my reasoning to avoid narcotic pain medication including worsening his cyclic vomiting syndrome and gastroparesis. Again, I do not feel that narcotics are indicated through an IV or IM source. The patient continues to describe pain at this point it is likely that he will require repeat hospitalization for further management, potentially placement or pain management referral. CONSULTATION: [None] DISPOSITION PLAN: Medical surgical telemetry admission for evaluation of syncope Accepting care team and consultations: I discussed the current laboratory data, diagnostic imaging and emergency care provided. Admitting team: Dr. Ceballos Admitting team indication: Insurance directed Departure Diagnosis: Primary Impression: Syncope Syncope type: unspecified Qualified Codes: R55 - Syncope and collapse Additional Impressions: Cyclic vomiting syndrome Vomiting Intractability: intractable Nausea presence: with nausea Qualified Codes: G43.A1 - Cyclical vomiting, intractable Chronic pain Chronic pain type: chronic pain syndrome Qualified Codes: G89.4 - Chronic pain syndrome Narcotic dependence Condition: JITENDRA Noav MD Dec 02, 2018 13:50
[2018-12-02] MEDS ORDERED: ONDANSETRON 4 MG INJ IV PRN (14:30)
[2018-12-02] MEDS ORDERED: ACETAMINOPHEN 325 MG TAB PO PRN (14:30)
== END 2018-12-02 14:15 | disposition home or self-care (01) ==
LOC: E/R 10:55
DX: R55 Syncope and collapse (principal); G43.A1 Cyclical vomiting, in migraine, intractable; F17.210 Nicotine dependence, cigarettes, uncomplicated; F11.20 Opioid dependence, uncomplicated
CPT/HCPCS: 36415; 70450; 73030; 80048; 85025; 93005; 96374; 96375; 96376; J1885; J2060; J7030; Z7502; Z7610

== ENCOUNTER 2018-12-06 14:39 | Inpatient (IN) | payer OTHER ==
[~2018-12-06] VITALS: Ht 182.9 cm; Wt 61.2 kg
[2018-12-06] MEDS ORDERED: MAGNESIUM HYDROXIDE 30ML CUP PO PRN (18:00)
[2018-12-06] MEDS ORDERED: ACETAMINOPHEN 325 MG TAB PO PRN (18:00)
[2018-12-06] MEDS ORDERED: NACL 0.9% 3 ML SYG IV SCH (18:00)
[2018-12-06] MEDS ORDERED: DOCUSATE SODIUM 100 MG CAP PO PRN (18:00)
[2018-12-06] MEDS ORDERED: METOCLOPRAMIDE 10 MG INJ IV PRN (18:00)
[2018-12-06] MEDS ORDERED: ONDANSETRON 4 MG INJ IV PRN (18:00)
[2018-12-06] MEDS ORDERED: morphine 2 MG INJ IV PRN ×2 (18:00→19:00)
[2018-12-06 18:24] VITALS: Ht 182.9 cm; Wt 61.2 kg
[2018-12-06] MEDS ORDERED: POTASSIUM CHLORIDE (SR) 20 MEQ TAB PO STA (18:27)
--- NOTE | 2018-12-06 19:01 | HP ---
Date/Time of Note Date/Time of Note DATE: 12/06/18 TIME: 18:58 Assessment/Plan VTE Prophylaxis SCD applied (from Ns): Yes Pharmacological prophylaxis: NA/contraindicated Pharm contraindication: bleeding Assessment/Plan Assessment/Plan 1. Acute GI bleed - Patient states he had an episode of hematemesis followed by syncopal episode - Hgb noted to be stable - will monitor for further episodes and check hgb if significant loss - PPI BID - GI consultation placed. Appears last scope by Dr. Zhang was 2015 with findings of esophagitis and gastritis - will keep NPO and continue on IVF 2. Abdominal pain - concern for appendicitis. Will check CT scan abd/pelvis - pain control - NPO and IVF 3. Cyclical vomiting - currently stable - Zofran and Reglan PRN 4. Anxiety - Klonopin TID - Ativan PRN 5. Bipolar disorder - continue on home medications - If needed will consult psych 6. Tobacco abuse - Nicotine patch 7. Diet - NPO 8. DVT ppx - SCD 9. GI ppx - PPI 10. Disposition - Admit to med/surg for GI workup for pain and acute bleed HPI/ROS Admit Date/Time Admit Date/Time Dec 06, 2018 at 16:35 Hx of Present Illness 28 yo M with PMH cyclical vomiting due to marijuana use, tobacco abuse, bipolar disorder, and anxiety presented to [facility] with complaints of recurrent vomiting with bright red blood since last night. Patient admits to syncopal episode following hematemesis. Per ED physician at OSH he presented their ED, fell to the floor and refused to leave. He complained of severe abdominal pain and was asking for narcotics. he was given Morphine and requested Ketamine which was not available. Patients labs were stable with Hgb 13.5, Hct 39, Plt 347, Na 141, K 4.2, Cl 102, Co2 23, BUN 29 and Cr 0.9. LFTs were within normal limits and lipase was 65. Patient did not have any imaging studies performed. Patient denies any further episodes of hematemesis but did admit to diarrhea yesterday without any blood. Patient denies chest pain, shortness of breath, dizziness, or urinary issues. ROS All 12 systems reviewed and pertinent positives as per HPI. All others negative. Constitutional: nausea; No chills, No fatigue Eyes: No discharge ENT: No congestion Respiratory: No cough, No shortness of breath, No sputum, No wheezing Cardiovascular: No chest pain, No lightheadedness, No palpitations Gastrointestinal: pain, blood, diarrhea, nausea, vomiting; No constipation Genitourinary: no complaints Musculoskeletal: no complaints Skin: no complaints; No laceration, No rash Neurologic: no complaints Endocrine: no complaints Lymphatic: no complaints Psychological: nl mood/affect Immunologic: no complaints PMH/Family/Social Past Medical History Medical History: GERD, other (cyclical vomiting from marijuana use, tobacco use, bipolar, anxiety) Medications Current Medications Buspirone HCl (Buspar) 5 mg TID PO ; Start 12/06/18 at 21:00 Clonazepam (Klonopin) 1 mg TID PO ; Start 12/06/18 at 21:00 Escitalopram Oxalate (Lexapro) 5 mg DAILY PO ; Start 12/07/18 at 09:00 Metoclopramide HCl (Reglan) 10 mg Q6H PRN IV nausea; Start 12/06/18 at 18:00 Ondansetron HCl (Zofran Inj) 4 mg Q4H PRN IV NAUSEA AND/OR VOMITING; Start 12/06/18 at 18:00 Dextrose/Sodium Chloride 1,000 ml @ 100 mls/hr Q10H IV ; Start 12/06/18 at 17:59 IV Flush (NS 3 ml) 3 ml PER PROTOCOL IV ; Start 12/06/18 at 18:00 Acetaminophen (Tylenol Tab) 650 mg Q6H PRN PO .PAIN 1-3 OR TEMP; Start 12/06/18 at 18:00 Docusate Sodium (Colace) 100 mg Q12H PRN PO .CONSTIPATION; Start 12/06/18 at 18:00 Magnesium Hydroxide (Milk Of Mag) 30 ml DAILY PRN PO .CONSTIPATION; Start 12/06/18 at 18:00 Pantoprazole (Protonix Iv) 40 mg BID@0600,1800 IV ; Start 12/06/18 at 18:15 Tramadol HCl (Ultram) 50 mg Q6H PRN PO MODERATE PAIN LEVEL 4-6; Start 12/06/18 at 18:00 Lorazepam (Ativan) 1 mg Q6H PRN IV breakthrough; Start 12/06/18 at 19:00; Status UNV Morphine Sulfate (morphine) 2 mg Q6 PRN IV SEVERE PAIN LEVEL 7-10; Start at 19:00; Status UNV Coded Allergies: No Known Drug Allergies (Verified Allergy, Unknown, 11/16/16) Past Surgical History Past Surgical Hx: other (lasix, plate in right hand) Family History Significant Family History: no pertinent family hx Social History Alcohol Use: occasionally Smoking Status: Current every day smoker Drug Use: marijuana Exam/Review of Systems Exam Exam General: Patient is laying in bed and answers questions. curled in ball, distress from pain, cachetic Head: Normocephalic atraumatic Eyes: EOMI, pupils reactive to light Neck: Supple, nontender, midline Respiratory: Clear to auscultation bilaterally. no wheezing or rhonchi Cardiovascular: S1, S2, regular rate and rhythm, no obvious murmurs Gastrointestinal: soft, tender lower abdominal area, nondistended, bowel sounds heard. mild guarding Neurological: Moves all extremities spontaneously. no focal deficits. motor and sensory intact Skin: No new skin lesions Additional Comments Home medications reviewed PURVI JOHNSON MD Dec 06, 2018 19:01
[2018-12-06] MEDS: PANTOPRAZOLE 40 MG INJ IV SCH (19:02)
[2018-12-06] MEDS: traMADol 50 MG TAB PO PRN (19:06)
[2018-12-06] MEDS: DEXTROSE 5%-0.45% NACL 1,000 ML IV SCH (19:09)
[2018-12-06 19:35] VITALS: BP 125/61; PULSE 54; RESP 17
[2018-12-06] MEDS: LORAZEPAM 2 MG INJ IV PRN (20:04)
[2018-12-06] MEDS: clonAZEPAM 0.5 MG TAB PO SCH (20:04)
[2018-12-06] MEDS: BUSPIRONE 5 MG TAB PO SCH (20:04)
[2018-12-06] MEDS: NICOTINE (21 MG/24 HR) PATCH TRANSDERM SCH (20:04)
[2018-12-06] MEDS ORDERED: SOD CHLORIDE 0.9% 100 ML ONE (20:38)
[2018-12-06] MEDS ORDERED: IODIXANOL LOCM 100 ML BTL ONE (20:38)
[2018-12-07] MEDS: morphine 2 MG INJ IV PRN ×4 (00:25→20:02)
[2018-12-07 01:58] VITALS: BP 99/68; PULSE 76; RESP 18
[2018-12-07 02:07] VITALS: BP 102/76; PULSE 78
[2018-12-07] MEDS: LORAZEPAM 2 MG INJ IV PRN ×3 (02:10→22:06)
[2018-12-07] MEDS: PANTOPRAZOLE 40 MG INJ IV SCH ×2 (06:25→17:36)
[2018-12-07] MEDS: DEXTROSE 5%-0.45% NACL 1,000 ML IV SCH ×3 (06:26→17:00)
[2018-12-07 07:35] VITALS: BP 117/75; PULSE 71; RESP 17
[2018-12-07] MEDS: clonAZEPAM 0.5 MG TAB PO SCH ×3 (08:24→20:54)
[2018-12-07] MEDS: BUSPIRONE 5 MG TAB PO SCH ×3 (08:24→20:54)
[2018-12-07] MEDS: NICOTINE (21 MG/24 HR) PATCH TRANSDERM SCH (08:25)
--- NOTE | 2018-12-07 08:47 | PN ---
Date/Time of Note Date/Time of Note DATE: 12/07/18 TIME: 08:47 Assessment/Plan VTE Prophylaxis Risk score (from Ns)>0 risk: 0 SCD applied (from Ns): No SCD contraindicated: patient refusal Pharmacological prophylaxis: NA/contraindicated Pharm contraindication: bleeding Lines/Catheters IV Catheter Type (from Nrs): Peripheral IV Assessment/Plan Assessment/Plan 1. Acute GI bleed - no further episodes appreciated since admission - Hgb noted to be stable - PPI BID - GI consultation placed. Appears last scope by Dr. Zhang was 2015 with findings of esophagitis and gastritis - will keep NPO and continue on IVF 2. Abdominal pain - CT abd/pelvis negative for acute issues - pain control - NPO and IVF 3. Cyclical vomiting - currently stable - Zofran and Reglan PRN 4. Anxiety - Klonopin TID - per gf he crushed and sniffed his last Klonopin prescription after discharge from the hospital - Ativan PRN 5. Bipolar disorder - continue on home medications - psych consultation appreciated 6. Tobacco abuse - Nicotine patch 7. Narcotic abuse - will avoid giving any more pain medications. 8. Disposition - Awaiting GI evaluation. Will advance diet when able and d/c home Result Diagram: 12/07/18 0639 12/07/18 0639 Results 24hrs Laboratory Tests Test 12/07/18 06:39 White Blood Count 10.4 # Red Blood Count 3.57 L Hemoglobin 11.1 L Hematocrit 33.5 L Mean Corpuscular Volume 93.8 Mean Corpuscular Hemoglobin 31.1 Mean Corpuscular Hemoglobin Concent 33.1 Red Cell Distribution Width 12.9 Platelet Count 260 # Mean Platelet Volume 9.6 Immature Granulocytes % 0.500 H Neutrophils % 77.2 H Lymphocytes % 17.0 Monocytes % 4.2 Eosinophils % 0.7 Basophils % 0.4 Nucleated Red Blood Cells % 0.0 Immature Granulocytes # 0.050 H Neutrophils # 8.0 H Lymphocytes # 1.8 Monocytes # 0.4 Eosinophils # 0.1 Basophils # 0.0 Nucleated Red Blood Cells # 0.0 Sodium Level 141 Potassium Level 4.0 Chloride Level 105 Carbon Dioxide Level 26 Anion Gap 10 Blood Urea Nitrogen 22 H Creatinine 0.83 Est Glomerular Filtrat Rate mL/min > 60 Glucose Level 79 Calcium Level 8.9 Magnesium Level 1.7 Total Bilirubin 0.7 Direct Bilirubin 0.00 Indirect Bilirubin 0.7 Aspartate Amino Transf (AST/SGOT) 22 Alanine Aminotransferase (ALT/SGPT) 19 Alkaline Phosphatase 50 Total Protein 6.5 Albumin 3.6 Globulin 2.90 Albumin/Globulin Ratio 1.24 Subjective 24 Hr Interval Summary Free Text/Dictation Patient was screaming and banging head against the wall this am demanding pain medications. He is a known narcotics abuser and discussion was held that his CT scan was normal. Patient was given Morphine and tramadol and per nursing, he was trying to force himself to throw up the tramadol. Patient was threatening suicide after not given IV opiods and was seen by Mona who explained consequence of his threats and he rescinded his suicide threat. Exam/Review of Systems Exam Vitals Vital Signs Date Temp Pulse Resp B/P (MAP) Pulse Ox O2 O2 Flow FiO2 Time Delivery Rate 12/07/18 97.9 71 17 117/75 100 Room Air 07:35 (89) Intake and Output 12/06/18 12/06/18 12/07/18 1515:00 23:00 07:00 IntakeIntake Total 1000 ml BalanceBalance 1000 ml Exam General: Patient is laying in bed. sleeping Neck: Supple Respiratory: Clear to auscultation bilaterally. no wheezing or rhonchi Cardiovascular: S1, S2, regular rate and rhythm, no obvious murmurs Gastrointestinal: soft, nondistended, bowel sounds heard Neurological: Moves all extremities spontaneously. no focal deficits. motor and sensory intact Skin: No new skin lesions Results Results 24hrs Laboratory Tests Test 12/07/18 06:39 White Blood Count 10.4 # Red Blood Count 3.57 L Hemoglobin 11.1 L Hematocrit 33.5 L Mean Corpuscular Volume 93.8 Mean Corpuscular Hemoglobin 31.1 Mean Corpuscular Hemoglobin Concent 33.1 Red Cell Distribution Width 12.9 Platelet Count 260 # Mean Platelet Volume 9.6 Immature Granulocytes % 0.500 H Neutrophils % 77.2 H Lymphocytes % 17.0 Monocytes % 4.2 Eosinophils % 0.7 Basophils % 0.4 Nucleated Red Blood Cells % 0.0 Immature Granulocytes # 0.050 H Neutrophils # 8.0 H Lymphocytes # 1.8 Monocytes # 0.4 Eosinophils # 0.1 Basophils # 0.0 Nucleated Red Blood Cells # 0.0 Sodium Level 141 Potassium Level 4.0 Chloride Level 105 Carbon Dioxide Level 26 Anion Gap 10 Blood Urea Nitrogen 22 H Creatinine 0.83 Est Glomerular Filtrat Rate mL/min > 60 Glucose Level 79 Calcium Level 8.9 Magnesium Level 1.7 Total Bilirubin 0.7 Direct Bilirubin 0.00 Indirect Bilirubin 0.7 Aspartate Amino Transf (AST/SGOT) 22 Alanine Aminotransferase (ALT/SGPT) 19 Alkaline Phosphatase 50 Total Protein 6.5 Albumin 3.6 Globulin 2.90 Albumin/Globulin Ratio 1.24 Medications Medication Current Medications Buspirone HCl (Buspar) 5 mg TID PO Last administered on 12/07/18 08:24; Admin Dose 5 MG; Start 12/06/18 at 21:00 Clonazepam (Klonopin) 1 mg TID PO Last administered on 12/07/18 08:24; Admin Dose 1 MG; Start 12/06/18 at 21:00 Escitalopram Oxalate (Lexapro) 5 mg DAILY PO Last administered on 12/07/18 08:23; Admin Dose 5 MG; Start 12/07/18 at 09:00 Metoclopramide HCl (Reglan) 10 mg Q6H PRN IV nausea; Start 12/06/18 at 18:00 Ondansetron HCl (Zofran Inj) 4 mg Q4H PRN IV NAUSEA AND/OR VOMITING Last administered on 12/07/18 08:29; Admin Dose 4 MG; Start 12/06/18 at 18:00 Dextrose/Sodium Chloride 1,000 ml @ 100 mls/hr Q10H IV Last administered on 12/07/18 06:26; Admin Dose 100 MLS/HR; Start 12/06/18 at 17:59 IV Flush (NS 3 ml) 3 ml PER PROTOCOL IV ; Start 12/06/18 at 18:00 Acetaminophen (Tylenol Tab) 650 mg Q6H PRN PO .PAIN 1-3 OR TEMP; Start 12/06/18 at 18:00 Docusate Sodium (Colace) 100 mg Q12H PRN PO .CONSTIPATION; Start 12/06/18 at 18:00 Magnesium Hydroxide (Milk Of Mag) 30 ml DAILY PRN PO .CONSTIPATION; Start 12/06/18 at 18:00 Pantoprazole (Protonix Iv) 40 mg BID@0600,1800 IV Last administered on 12/07/18 06:25; Admin Dose 40 MG; Start 12/06/18 at 18:15 Tramadol HCl (Ultram) 50 mg Q6H PRN PO MODERATE PAIN LEVEL 4-6 Last administered on 12/06/18 19:06; Admin Dose 50 MG; Start 12/06/18 at 18:00 Lorazepam (Ativan) 1 mg Q6H PRN IV breakthrough Last administered on 12/07/18 02:10; Admin Dose 1 MG; Start 12/06/18 at 19:00 Nicotine (Nicoderm 21 Mg/ 24hr) 1 patch DAILY TRANSDERM Last administered on 08:25; Admin Dose 1 PATCH; Start 12/06/18 at 19:00 Morphine Sulfate (morphine) 2 mg Q4 PRN IV SEVERE PAIN LEVEL 7-10 Last administered on 12/07/18 08:24; Admin Dose 2 MG; Start 12/06/18 at 21:30 PURVI JOHNSON MD Dec 07, 2018 08:47
[2018-12-07] MEDS: traMADol 50 MG TAB PO PRN (08:48)
[2018-12-07] MEDS ORDERED: ESCITALOPRAM 10 MG TAB PO SCH (09:00)
[2018-12-07] MEDS ORDERED: HALOPERIDOL 5 MG INJ IM ONE (10:00)
--- NOTE | 2018-12-07 12:48 | PSY ---
Date/Time of Note Date/Time of Note DATE: 12/07/18 TIME: 12:42 Psychiatric Subjective Eval Consent Pt consented to telemedicine: No Subjective Evaluation Patient location: inpatient History of present illness Patient is a 28-year-old male with complaints about vomiting due to substance use . On a [id number] evaluation patient was throwing tantrums try to hit his head on the wall requesting for 4 mg of Ativan and some opioids patient states he only verbalized suicidal ideation because he needed more opioids, When he was told that a speech and language clinician will have to evaluate him for possible danger to self , patient states he was only verbalized suicidal thoughts because he needed some opioids. He declines suicidal ideation and contracted for safety. Discussed risk and benefits of mood stabilizers but patient declined declined all oral meds and just wanted IV opioids Past psychiatric history Long history of mental illness Hospitalization: other Medical history Problems Medical Problems: (1) Abdominal pain Status: Acute (2) Abdominal pain Status: Acute (3) Abdominal pain Status: Acute (4) Abdominal pain of unknown etiology Status: Acute (5) Acute hypokalemia Status: Acute (6) Acute kidney injury Status: Acute (7) ARF (acute renal failure) Status: Acute (8) Chronic pain Status: Acute (9) Chronic renal disease Status: Acute (10) Cyclic vomiting syndrome Status: Acute (11) Cyclic vomiting syndrome Status: Acute (12) Cyclical vomiting syndrome Status: Acute (13) Cyclical vomiting syndrome Status: Acute (14) Drug-seeking behavior Status: Acute (15) Gastritis Status: Acute (16) Hyperemesis Status: Acute (17) Intractable vomiting with nausea Status: Acute (18) Leukocytosis Status: Acute (19) Marijuana abuse Status: Acute (20) Narcotic dependence Status: Acute (21) Nausea and vomiting Status: Acute (22) Patient left after triage Status: Acute (23) Patient left before evaluation by physician Status: Acute (24) Patient left before triage assessment Status: Acute (25) Patient left without being seen Status: Acute (26) Polysubstance abuse Status: Acute (27) Symptoms of dehydration Status: Acute (28) Syncope Status: Acute (29) Upper gastrointestinal bleed Status: Acute (30) Vomiting Status: Acute Allergies: Coded Allergies: No Known Drug Allergies (Verified Allergy, Unknown, 11/16/16) Substance Abuse Substance abuse history: Yes Social History Marital status: DPA/Conservatorship: No Psychiatric Objective Eval Review of Systems: Review of Systems: Not Applicable Physical Examination: Physical Examination: Not Applicable Appetite: Adequate Energy: Adequate Interest: Adequate Mental Status Examination: Appearance: Poor Hygiene Psychomotor Activity: Agitated Behavior: Agitated Speech: Clear AFFECT: Anxious Mood: Anxious Though Process: Linear Thought Content: Normal Suicidal: No Laboratory Results Laboratory Tests Test 12/07/18 06:39 White Blood Count 10.4 10^3/ul Red Blood Count 3.57 10^6/ul Hemoglobin 11.1 g/dl Hematocrit 33.5 % Mean Corpuscular Volume 93.8 fl Mean Corpuscular Hemoglobin 31.1 pg Mean Corpuscular Hemoglobin Concent 33.1 g/dl Red Cell Distribution Width 12.9 % Platelet Count 260 10^3/UL Mean Platelet Volume 9.6 fl Immature Granulocytes % 0.500 % Neutrophils % 77.2 % Lymphocytes % 17.0 % Monocytes % 4.2 % Eosinophils % 0.7 % Basophils % 0.4 % Nucleated Red Blood Cells % 0.0 /100WBC Immature Granulocytes # 0.050 10^3/ul Neutrophils # 8.0 10^3/ul Lymphocytes # 1.8 10^3/ul Monocytes # 0.4 10^3/ul Eosinophils # 0.1 10^3/ul Basophils # 0.0 10^3/ul Nucleated Red Blood Cells # 0.0 10^3/ul Sodium Level 141 mmol/L Potassium Level 4.0 mmol/L Chloride Level 105 mmol/L Carbon Dioxide Level 26 mmol/L Anion Gap 10 Blood Urea Nitrogen 22 mg/dl Creatinine 0.83 mg/dl Est Glomerular Filtrat Rate mL/min > 60 mL/min Glucose Level 79 mg/dl Calcium Level 8.9 mg/dl Magnesium Level 1.7 mg/dl Total Bilirubin 0.7 mg/dl Direct Bilirubin 0.00 mg/dl Indirect Bilirubin 0.7 mg/dl Aspartate Amino Transf (AST/SGOT) 22 IU/L Alanine Aminotransferase (ALT/SGPT) 19 IU/L Alkaline Phosphatase 50 IU/L Total Protein 6.5 g/dl Albumin 3.6 g/dl Globulin 2.90 g/dl Albumin/Globulin Ratio 1.24 Assessment and Plan Assessment/Diagnosis Diagnosis Bipolar disorder Recommendation/Plan Medication Management Continue current meds Discharge Disposition: Other Legal Status: Voluntary (Does not meet criteria for 5150 hold) ONYEKWE,TRACY R TABLE MACHINE OPERATOR Dec 07, 2018 12:48
[2018-12-07 14:00] VITALS: BP 115/69; PULSE 88; RESP 17
[2018-12-07 19:40] VITALS: BP 117/70; PULSE 71; RESP 18
[2018-12-08] MEDS: morphine 2 MG INJ IV PRN ×2 (00:19→04:27)
[2018-12-08 02:00] VITALS: BP 111/64; PULSE 82; RESP 18
[2018-12-08] MEDS: DEXTROSE 5%-0.45% NACL 1,000 ML IV SCH (02:24)
[2018-12-08] MEDS: PANTOPRAZOLE 40 MG INJ IV SCH (05:31)
[2018-12-08] MEDS: LORAZEPAM 2 MG INJ IV PRN (05:33)
--- NOTE | 2018-12-08 17:21 | DS ---
Date/Time of Note Date/Time of Note DATE: 12/08/18 TIME: 17:16 Discharge Summary Admission/Discharge Info Admit Date/Time Dec 06, 2018 at 16:35 Discharge Date/Time Dec 08, 2018 at 06:26 Discharge Diagnosis 1. Acute GI bleed 2. Abdominal pain 3. Cyclical vomiting 4. Anxiety 5. Bipolar disorder 6. Tobacco abuse 7. Narcotic abuse Patient Condition: Stable Consults GI Procedures PROCEDURE: CT Abdomen and pelvis with contrast. CLINICAL INDICATION: Abdominal pain. TECHNIQUE: CT scan of the abdomen and pelvis with contrast was performed on a multi-detector high-resolution CT scanner. The patient was scanned following the uncomplicated administration of 100 cc of Omnipaque 300 intravenous contrast. Coronal and sagittal reformatted images were obtained from the axial source images. Images were reviewed on a high-resolution PACS workstation. DICOM images are available. One or more of the following dose reduction techniques were used: - Automated exposure control. - Adjustment of the mA and/or kV according to patient size. - Use of iterative reconstruction technique. Exam CTD/vol = 4.42 mGy. Total exam DLP = 254.95 mGy-cm. COMPARISON: 05/29/2018. FINDINGS: Evaluation of the lung bases demonstrates no pleural or parenchymal disease. Abdomen: The liver is normal in size. There is no focal mass or dilatation of the biliary tree. The gallbladder is not distended. The spleen, pancreas and bilateral adrenal glands are within normal limits. Bilateral kidneys are normal in size with symmetric enhancement. There is no focal mass, hydronephrosis or hydroureter. There is no retroperitoneal adenopathy. The abdominal aorta is of normal caliber. Evaluation of the bowel is limited by lack of oral contrast. There is no bowel obstruction or free air. A normal appendix is partially visualized. There is no diverticulosis or diverticulitis. There is no ascites. Pelvis: The bladder is unremarkable. There is trace pelvic free fluid. The prostate and seminal vesicles are within normal limits. There is no significant pelvic adenopathy. Evaluation of the osseous structures demonstrates no suspicious lytic or blastic lesion. 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 IMPRESSION: Trace pelvic free fluid. Otherwise no acute abnormality identified within the abdomen and pelvis. .Matthias Goss MD, MD Date Time Electronically viewed and signed by .Matthias Goss MD, on 12/06/2018 22:17 Hx of Present Illness 28 yo M with PMH cyclical vomiting due to marijuana use, tobacco abuse, bipolar disorder, and anxiety presented to [facility] with complaints of recurrent vomiting with bright red blood since last night. Patient admits to syncopal episode following hematemesis. Per ED physician at OSH he presented their ED, fell to the floor and refused to leave. He complained of severe abdominal pain and was asking for narcotics. he was given Morphine and requested Ketamine which was not available. Patients labs were stable with Hgb 13.5, Hct 39, Plt 347, Na 141, K 4.2, Cl 102, Co2 23, BUN 29 and Cr 0.9. LFTs were within normal limits and lipase was 65. Patient did not have any imaging studies performed. Patient denies any further episodes of hematemesis but did admit to diarrhea yesterday without any blood. Patient denies chest pain, shortness of breath, dizziness, or urinary issues. Hospital Course Patient was admitted for abdominal pain and GI was consulted given history of episode of hematemesis. Patient requested pain medications but given history of narcotics abuse, he was given a low dose of Morphine. Patient underwent CT scan of abdomen to rule out pathological cause for abdominal pain with results negative for any acute issues. Patient continue to request Dilaudid and higher doses of Morphine. When discussed that there was no etiology found for his pain on CT scan patient threw a fit and started to threaten suicide. He was evaluated by psychiatrist and after discussion, patient admitted to suicidal threat in order to get IV opioids. Patient continued to request IV opioids and after being denied increased doses, he left AGAINST MEDICAL ADVICE. Home Meds Active Scripts Escitalopram Oxalate* (Escitalopram Oxalate*) 10 Mg Tablet, 5 MG PO DAILY, #60 TAB Prov:GABRIELLE ROMO 11/29/18 Clonazepam* (Clonazepam*) 0.5 Mg Tablet, 1 MG PO TID, #90 TAB 1 Refill Prov:GABRIELLE ROMO 11/29/18 Buspirone Hcl* (Buspirone Hcl*) 5 Mg Tab, 5 MG PO TID, #60 TAB 2 Refills Prov:GABRIELLE ROMO 11/29/18 Metoclopramide* (Reglan*) 10 Mg Tablet, 10 MG PO Q6 PRN for NAUSEA AND/OR VOMITING, #30 TAB Prov:GABRIELLE ROMO 11/29/18 Ondansetron Hcl* (Zofran*) 4 Mg Tablet, 4 MG PO Q6H PRN for NAUSEA AND/OR VOMITING, #40 TAB Prov:GABRIELLE ROMO 11/29/18 Reported Medications Famotidine* (Famotidine*) 20 Mg Tablet, 20 MG PO BID, #60 TAB 11/16/16 Primary Care Provider Care Physician No Primary Time spent on discharge: < 30 minutes Pending Labs Laboratory Tests Test 12/08/18 05:52 White Blood Count 7.8 10^3/ul (4.8-10.8) Red Blood Count 3.82 10^6/ul (4.70-6.10) Hemoglobin 11.9 g/dl (14.0-18.0) Hematocrit 35.4 % (42.0-52.0) Mean Corpuscular Volume 92.7 fl (82.0-101.0) Mean Corpuscular Hemoglobin 31.2 pg (29.0-33.0) Mean Corpuscular Hemoglobin Concent 33.6 g/dl (32.0-37.0) Red Cell Distribution Width 12.8 % (11.5-14.5) Platelet Count 210 10^3/UL (140-415) Mean Platelet Volume 9.5 fl (7.4-10.4) Immature Granulocytes % 0.300 % (0.001-0.429) Neutrophils % % (39.0-77.0) Segmented Neutrophils % (Manual) 84 % (39-77) Band Neutrophils % (Manual) 4 % (0-4) Lymphocytes % % (15.0-51.0) Lymphocytes % (Manual) 10 % (15-51) Monocytes % % (0.0-11.0) Monocytes % (Manual) 2 % (0-11) Eosinophils % % (0.0-7.0) Basophils % % (0.0-2.0) Nucleated Red Blood Cells % 0.0 /100WBC (0.0-0.0) Immature Granulocytes # 0.020 10^3/ul (0.0-0.031) Neutrophils # 10^3/ul (1.6-7.5) Neutrophils # (Manual) 6.6 10^3/ul (1.6-7.5) Band Neutrophils # 0.3 10^3/ul (0.0-0.6) Lymphocytes (Manual) 0.7 10^3/ul (0.8-2.9) Lymphocytes # 10^3/ul (0.8-2.9) Monocytes # 10^3/ul (0.3-0.9) Monocytes # (Manual) 0.1 10^3/ul (0.3-0.9) Eosinophils # 10^3/ul (0.0-0.5) Basophils # 10^3/ul (0.0-0.1) Nucleated Red Blood Cells # 10^3/ul (0.0-0.0) Platelet Estimate NORMAL Polychromasia 3+ (0-0) Anisocytosis 1+ (0-0) Microcytosis 1+ (0-0) Ovalocytes 1+ (0-0) PURVI JOHNSON MD Dec 08, 2018 17:21
== END 2018-12-08 06:26 | disposition left against medical advice (07) | DRG 379 ==
LOC: 5EC 16:35
PROVIDERS: ADMIT Internal Medicine; ATTEND Internal Medicine
DX: K92.0 Hematemesis (principal); R55 Syncope and collapse; G43.A0 Cyclical vomiting, in migraine, not intractable; F41.9 Anxiety disorder, unspecified; F31.9 Bipolar disorder, unspecified; Z72.0 Tobacco use
CPT/HCPCS: 74177; 80053; 83735; 85025; C9113; J1630; J2060; J2270; J2405; J7042; Q9967

== ENCOUNTER 2019-03-12 01:54 | Emergency (ER) | payer OTHER ==
[~2019-03-12] VITALS: Ht 182.9 cm; Wt 59.4 kg
[2019-03-12 02:17] VITALS: Ht 182.9 cm; Wt 59.4 kg
[2019-03-12] MEDS ORDERED: SOD CHLORIDE 0.9% 1,000 ML IV STA (03:47)
[2019-03-12] MEDS ORDERED: ONDANSETRON 4 MG INJ IV STA (03:47)
--- NOTE | 2019-03-12 05:12 | ERD ---
ER Documentation Chief Complaint Chief Complaint gen body weakness/abd pain, signed ama at [facility] today HPI This is generalized body aches abdominal pain. Patient is well-known to me from multiple previous evaluations. Apparently was an incident any sign out against medical complaints. Patient mainly begins asking for narcotic pain medications even though he has a history of chronic abdominal pain and is to be seeing a pain management doctor. He does not give any more details about this pain, but says that is the "same pain as before ". ROS All systems reviewed and are negative except as per history of present illness. Medications Home Meds Active Scripts Escitalopram Oxalate* (Escitalopram Oxalate*) 10 Mg Tablet, 5 MG PO DAILY, #60 TAB Prov:GABRIELLE ROMO 11/29/18 Clonazepam* (Clonazepam*) 0.5 Mg Tablet, 1 MG PO TID, #90 TAB 1 Refill Prov:GABRIELLE ROMO 11/29/18 Buspirone Hcl* (Buspirone Hcl*) 5 Mg Tab, 5 MG PO TID, #60 TAB 2 Refills Prov:GABRIELLE ROMO 11/29/18 Metoclopramide* (Reglan*) 10 Mg Tablet, 10 MG PO Q6 PRN for NAUSEA AND/OR VOMITING, #30 TAB Prov:GABRIELLE ROMO 11/29/18 Ondansetron Hcl* (Zofran*) 4 Mg Tablet, 4 MG PO Q6H PRN for NAUSEA AND/OR VOMITING, #40 TAB Prov:GABRIELLE ROMO 11/29/18 Reported Medications Famotidine* (Famotidine*) 20 Mg Tablet, 20 MG PO BID, #60 TAB 11/16/16 Allergies Allergies: Coded Allergies: No Known Drug Allergies (Verified Allergy, Unknown, 03/12/19) PMhx/Soc History of Surgery: No Anesthesia Reaction: No Hx Neurological Disorder: No Hx Respiratory Disorders: No Hx Cardiac Disorders: No Hx Psychiatric Problems: No Hx Miscellaneous Medical Probl: Yes (renal failure) Hx Alcohol Use: Yes (denied) Hx Substance Use: Yes (denied) Hx Tobacco Use: Yes (denied) Smoking Status: Never smoker Physical Exam Vitals Vital Signs Date Temp Pulse Resp B/P (MAP) Pulse Ox O2 O2 Flow FiO2 Time Delivery Rate 03/12/19 98.2 79 18 126/84 99 02:17 (98) Physical Exam Const: No acute distress Head: Atraumatic Eyes: Normal Conjunctiva ENT: Normal External Ears, Nose and Mouth. Neck: Full range of motion. No meningismus. Resp: Clear to auscultation bilaterally Cardio: Regular rate and rhythm, no murmurs Abd: Soft, non tender, non distended. Normal bowel sounds Skin: No petechiae or rashes Back: No midline or flank tenderness Ext: No cyanosis, or edema Neur: Awake and alert Psych: Normal Mood and Affect Result Diagram: 03/12/19 0441 Results 24 hrs Laboratory Tests Test 03/12/19 04:20 03/12/19 04:41 Urine Color YELLOW Urine Clarity CLEAR Urine pH 6.0 Urine Specific [place] 1.027 Urine Ketones NEGATIVE mg/dL Urine Nitrite NEGATIVE mg/dL Urine Bilirubin NEGATIVE mg/dL Urine Urobilinogen 1+ mg/dL Urine Leukocyte Esterase NEGATIVE [place]/ul Urine Microscopic RBC 7 /HPF Urine Microscopic WBC 0 /HPF Urine Hemoglobin 2+ mg/dL Urine Glucose 1+ mg/dL Urine Total Protein 1+ mg/dl White Blood Count 7.4 10^3/ul Red Blood Count 5.18 10^6/ul Hemoglobin 16.2 g/dl Hematocrit 48.5 % Mean Corpuscular Volume 93.6 fl Mean Corpuscular Hemoglobin 31.3 pg Mean Corpuscular Hemoglobin Concent 33.4 g/dl Red Cell Distribution Width 12.3 % Platelet Count 278 10^3/UL Mean Platelet Volume 10.3 fl Immature Granulocytes % 0.300 % Neutrophils % 64.3 % Lymphocytes % 19.6 % Monocytes % 15.6 % Eosinophils % 0.1 % Basophils % 0.1 % Nucleated Red Blood Cells % 0.0 /100WBC Immature Granulocytes # 0.020 10^3/ul Neutrophils # 4.7 10^3/ul Lymphocytes # 1.4 10^3/ul Monocytes # 1.2 10^3/ul Eosinophils # 0.0 10^3/ul Basophils # 0.0 10^3/ul Nucleated Red Blood Cells # 0.0 10^3/ul Current Medications Medications Dose Sig/Yue Start Time Status Last (Trade) Ordered Route PRN Stop Time Admin Dose Reason Admin Sodium 1,000 ml @ Q1H STAT 03/12/19 DC 03/12/19 Chloride 1,000 mls/hr IV 03:47 04:36 03/12/19 04:46 Ondansetron 4 mg ONCE STAT 03/12/19 DC 03/12/19 HCl (Zofran IV 03:47 04:36 Inj) 03/12/19 03:48 Procedures/MDM Emergency room course: Patient seen and evaluated. Was given fluid bolus and Zofran. Serial exams are stable. Patient repeatedly asked for narcotic pain medication. Medical decision making: Patient's gastrointestinal symptoms have stabilized while in the department. No evidence of severe dehydration, sepsis, or surgical abdomen. Extensive discussion with family and patient that occult disease cannot be ruled out. 8 hour recheck for repeat abdominal exam is planned. Departure Diagnosis: Primary Impression: Chronic pain Chronic pain type: other chronic pain Qualified Codes: G89.29 - Other chronic pain Condition: Stable Patient Instructions: Chronic Pain SONIDO JOSE Mar 12, 2019 05:12
[2019-03-12 06:50] VITALS: BP 117/72; PULSE 62; RESP 18
== END 2019-03-12 06:50 | disposition home or self-care (01) ==
LOC: E/R 01:54
DX: G89.29 Other chronic pain (principal); Z87.891 Personal history of nicotine dependence
CPT/HCPCS: 36415; 80053; 81001; 83690; 85025; 93005; 96374; J2405; J7030; Z7502

== ENCOUNTER 2019-05-25 16:12 | Emergency (ER) | payer OTHER ==
[~2019-05-25] VITALS: Ht 182.9 cm; Wt 56.7 kg
[2019-05-25 16:19] VITALS: BP 120/83; PULSE 120; RESP 20; Ht 182.9 cm; Wt 56.7 kg
== END 2019-05-25 18:18 | disposition home or self-care (01) ==
LOC: E/R 16:12
DX: F11.20 Opioid dependence, uncomplicated (principal); Z72.89 Other problems related to lifestyle; Z76.5 Malingerer [conscious simulation]
CPT/HCPCS: 99282